=== PATIENT | male | born 1955 | race Caucasian/White ===

== ENCOUNTER 2023-12-31 16:47 | Emergency (ER) | payer MEDICARE, SELFPAY ==
[2023-12-31 17:04] VITALS: BP 167/94; PULSE 72; RESP 18; TEMP 36.5; O2SAT 94; BMI 36.2
--- NOTE | 2023-12-31 17:45 | XR_ITS ---
The [address] [address] Patient Name: MELISSA CHACON MRN: [id number] date: 1955 Sex: M Assigned Patient Location: ER Current Patient Location: ER Accession/Order Number: [id number] Exam Date: 12/31/2023 17:48 Report Date: 12/31/2023 18:46 At the request of: RADHA PEREZ Procedure: XR chest 2V EXAM: XR chest 2V HISTORY: orthopnea, SOB COMPARISON: None. TECHNIQUE: Chest X-ray AP, 1 view FINDINGS: Support devices: None. Lungs/pleura: No pneumothorax. Bilateral lower lobes hazy opacities, representing atelectasis and/or consolidation. Heart and mediastinum: Normal contours. Bones: No acute abnormality identified. XR/XR chest 2V Impression: Bilateral lower lobes hazy opacities, representing atelectasis and/or consolidation. Electronically authenticated by: KRYSTIAN BASS Date: 12/31/2023 18:46
--- NOTE | 2023-12-31 17:57 | ED_ITS ---
HPI - General Adult General Chief complaint: Shortness of Breath/Dyspnea Stated complaint: Shortness of Breath Time Seen by Provider: 12/31/23 17:53 Source: patient and family Mode of arrival: walk-in Limitations: no limitations History of Present Illness HPI narrative: Patient is a 5-year-old male who is presenting to the Emergency Room today with chief complaint Of mild shortness of breath, cough, congestion for the past 2 weeks. Patient believes symptoms have worsened in the past 2 days. Patient saw his PCP last Wednesday, Dr. Novak, had swabs in the office that were negative. is at bedside. Patient has a history of shortness of breath and emphysema. Patient does not wear oxygen at home. He does take she was sedated, also has a albuterol inhaler. Patient was noted to have 5 pound weight gain in triage note, patient states that is not significant and not watery, hematologic gain a few pounds in the last couple weeks. Patient has no fluid swelling to his arms, legs, or his abdomen. Patient has been taking some uuff-qta-hgxdooj medication to help with cough. No chest pain or tightness. No other acute complaints. . All systems are negative except as noted/marked. All systems reviewed and otherwise negative. . Nurses note and vital signs reviewed and patient is not hypoxic. General: The patient appears well and in no apparent distress. Patient is resting comfortably on cart. Patient is not toxic, lethargic, or listless Skin: Warm, dry, no pallor noted. There is no rash noted. No petechiae, purpura. Head: Normocephalic, atraumatic Eye: Normal conjunctiva, no drainage, EOMI. PERRL Ears, Nose, Mouth, and Throat: oral mucosa is moist. Nares patent. Mouth without vesicles. Cardiovascular: Regular Rate and Rhythm, no murmur, gallop, rub Respiratory: Patient is in no distress, no accessory muscle use, lungs are Faint crackles to bilateral bases with faint wheezing as well. Back: non-tender, no CVA tenderness bilaterally to percussion. No CT LS midline pain GI: soft, Obese,no tenderness to palpation, no masses appreciated. No rebound, guarding, or rigidity noted. No flank pain bilateral, No distention Musculoskeletal: Patient has full range of motion of all of the extremities, no motor, sensory, or focal neurological deficits. No edema to lower extremities. Neurological: A&O x3, normal speech Psychiatric: Cooperative Related Data Home Medications Medication Instructions Recorded Confirmed Soliqua 100/33 12/31/23 atorvastatin 40 mg tablet mg 12/31/23 empagliflozin 25 mg tablet 25 mg PO DAILY 12/31/23 12/31/23 (Jardiance) ergocalciferol (vitamin D2) 1,250 12/31/23 mcg (50,000 unit) capsule (Vitamin D2) fluticasone fur. 100 mcg-umeclid inhalation 12/31/23 62.5 mcg-vilant 25 mcg inhalat.powder (Trelegy Ellipta) lisinopril 20 mg tablet 20 mg PO DAILY 12/31/23 12/31/23 metformin 1,000 mg tablet mg 12/31/23 propranolol 20 mg tablet 10 mg PO DAILY 12/31/23 12/31/23 tamsulosin 0.4 mg capsule mg PO 12/31/23 Previous Rx's Medication Instructions Recorded benzonatate 100 mg capsule 200 mg (2 x 100 mg) PO TID PRN 12/31/23 cough #20 caps doxycycline hyclate 100 mg tablet 100 mg PO BID 10 days #20 tabs 12/31/23 Allergies Allergy/AdvReac Type Severity Reaction Status Date / Time No Known Drug Allergies Allergy Verified 12/31/23 17:04 [facility] Social History Smoking status: Former smoker Exam Constitutional Vital Signs, click to edit/add: Last Vital Signs Temp 97.7 F 12/31/23 17:04 Pulse 71 12/31/23 18:25 Resp 18 12/31/23 18:25 BP 167/94 H 12/31/23 17:04 Pulse Ox 92 L 12/31/23 18:25 O2 Del Method Room Air 12/31/23 17:04 Course Vital Signs Vital signs: Vital Signs Temperature 97.7 F 12/31/23 17:04 Pulse Rate 72 12/31/23 17:04 Respiratory Rate 18 12/31/23 17:04 Blood Pressure 167/94 H 12/31/23 17:04 Pulse Oximetry 94 L 12/31/23 17:04 Oxygen Delivery Method Room Air 12/31/23 17:04 Temperature 97.7 F 12/31/23 17:04 Pulse Rate 71 12/31/23 18:25 Respiratory Rate 18 12/31/23 18:25 Blood Pressure 167/94 H 12/31/23 17:04 Pulse Oximetry 92 L 12/31/23 18:25 Oxygen Delivery Method Room Air 12/31/23 17:04 Medical Decision Making MDM Narrative Medical decision making narrative: Chest x-ray shows questionable atelectasis versus consolidation pneumonia. Patient has no elevated white blood cell, troponin and B natruretic peptide are negative. Patient has no fever, does have mild cough, does have mild sinus congestion with sinus drainage noted to the posterior pharynx. Patient has been sick for 2 weeks. Patient is a diabetic and chronic obstructive pulmonary disease exacerbation and history. Patient prophylactically placed on doxycycline, given Tessalon Perles to help with cough suppression. Patient will use his albuterol inhaler every 4 hours later is awake, a lot of aepx-mjm-iuqobqh medications were educated to use at bedside and on discharge paperwork for patient to take. No questions at discharge. Lab Data Labs: Lab Results 12/31/23 Range/Units 18:05 WBC 6.2 (4.0-11.0) 10^3/uL RBC 4.57 L (4.70-6.10) 10^6/uL Hgb 12.7 L (14.0-18.0) g/dL Hct 40.9 L (42.0-54.0) % MCV 89.5 (80.0-94.0) fL MCH 27.8 (25.9-34.0) pg MCHC 31.1 (29.9-35.2) g/dL RDW 18.1 H (11.0-15.0) % Plt Count 270 (150-450) 10^3/uL MPV 9.2 L (9.5-13.5) fL Neut % (Auto) 64.1 (43.0-75.0) % Lymph % (Auto) 17.7 L (20.5-60.0) % Rich % (Auto) 11.0 (1.7-12.0) % Eos % (Auto) 3.9 (0.9-7.0) % Baso % (Auto) 1.4 (0.2-2.0) % Neut # (Auto) 4.0 (1.4-6.5) 10^3/uL Lymph # (Auto) 1.1 L (1.2-3.8) 10^3/uL Rich # (Auto) 0.7 (0.3-0.8) 10^3/uL Eos # (Auto) 0.2 (0.0-0.7) 10^3/uL Baso # (Auto) 0.1 (0.0-0.1) 10^3/uL Abs Immat Gran (auto) 0.12 H (0.00-0.03) 10^3/uL Imm/Tot Granulo (auto) 1.9 H (0.0-0.5) % Sodium 140 (136-145) mmol/L Potassium 3.9 (3.5-5.1) mmol/L Chloride 103 (98-107) mmol/L Carbon Dioxide 33.7 H (21.0-32.0) mmol/L Anion Gap 7.2 BUN 13.0 (7.0-18.0) mg/dL Creatinine 1.11 (0.70-1.30) mg/dL Est GFR ( Amer) >60 (>=60) Est GFR (Non-Af Amer) >60 (>=60) BUN/Creatinine Ratio 11.7 Glucose 93 (74-106) mg/dL Calcium 9.2 (8.5-10.1) mg/dL Troponin I High Sens <4.0 L (4.0-76.1) pg/mL NT-Pro-B Natriuret Pep 20.0 (<=900.0) pg/mL ECG Data Attestation: I personally reviewed and interpreted this ECG as follows: (EKG interpretation. Normal sinus rhythm at 71 beats a minute. Left axis deviation QTc of 405.) Discharge Plan Discharge Chief Complaint: Shortness of Breath/Dyspnea Clinical Impression: Sinusitis, COPD exacerbation Patient Disposition: Home, Self-Care Time of Disposition Decision: 19:20 Condition: Good Mode of Transportation: Private Vehicle Prescriptions / Home Meds: New benzonatate 100 mg capsule 200 mg PO TID PRN (Reason: cough) Qty: 20 0RF doxycycline hyclate 100 mg tablet 100 mg PO BID 10 Days Qty: 20 0RF No Action atorvastatin 40 mg tablet tamsulosin 0.4 mg capsule PO metformin 1,000 mg tablet ergocalciferol (vitamin D2) [Vitamin D2] 1,250 mcg (50,000 unit) capsule Trelegy Ellipta 100-62.5-25 mcg blister with device INHALATION propranolol 20 mg tablet 10 mg PO DAILY lisinopril 20 mg tablet 20 mg PO DAILY Jardiance 25 mg tablet 25 mg PO DAILY Soliqua 100/33 Instructions: Sinusitis (ED), COPD (Chronic Obstructive Pulmonary Disease) (ED) Additional Instructions: Start using DayQuil, NyQuil, Flonase daily for next 5-7 days Add Mucinex DM if needed. Take daily vitamin C, vitamin D3, and zinc Increase fluids. Alternate Tylenol and Motrin every 4 hours as needed for body aches, muscle pain, joint pain or chest wall pain Follow-up with her PCP is no significant improvement in the next 3-4 days Referrals: PREETHI NOVAK [Primary Care Provider] - 1 week Discharge Date/Time: 12/31/23 19:30 Stand Alone Forms: Portal Instructions
[2023-12-31 18:17] LABS: Basophils Absolute Auto 0.1 10^3/uL (0.0-0.1); Basophils Percent Auto 1.4 % (0.2-2.0); Eosinophils Absolute Auto 0.2 10^3/uL (0.0-0.7); Eosinophils Percent Auto 3.9 % (0.9-7.0); Hematocrit 40.9 % (42.0-54.0); Hemoglobin 12.7 g/dL (14.0-18.0); Immature Granulocytes Abs Auto 0.12 10^3/uL (0.00-0.03); Immature Granulocytes Pct Auto 1.9 % (0.0-0.5); Lymphocytes Absolute Auto 1.1 10^3/uL (1.2-3.8); Lymphocytes Percent Auto 17.7 % (20.5-60.0); Mean Corpuscular HGB Conc 31.1 g/dL (29.9-35.2); Mean Corpuscular Hemoglobin 27.8 pg (25.9-34.0); Mean Corpuscular Volume 89.5 fL (80.0-94.0); Mean Platelet Volume 9.2 fL (9.5-13.5); Monocytes Absolute Auto 0.7 10^3/uL (0.3-0.8); Neutrophils Percent Auto 64.1 % (43.0-75.0); Platelet Count 270 10^3/uL (150-450); Red Blood Count 4.57 10^6/uL (4.70-6.10); Red Cell Distribution Width 18.1 % (11.0-15.0); White Blood Count 6.2 10^3/uL (4.0-11.0)
[2023-12-31 18:25] VITALS: PULSE 71; RESP 18; O2SAT 92
[2023-12-31] MEDS: ALBUTEROL SULFATE 2.5 MG/3 ML VIAL NEB IH (18:25)
[2023-12-31 18:43] LABS: Anion Gap 7.2; BUN Creatinine Ratio 11.7; Calcium 9.2 mg/dL (8.5-10.1); Carbon Dioxide 33.7 mmol/L (21.0-32.0); Chloride 103 mmol/L (98-107); Estimated GFR (African America >60 (>=60); Estimated GFR (Non-African Ame >60 (>=60); Glucose 93 mg/dL (74-106); Potassium 3.9 mmol/L (3.5-5.1); Sodium 140 mmol/L (136-145); Troponin I High Sensitivity <4.0 pg/mL (4.0-76.1)
--- NOTE | 2023-12-31 19:06 | ECG_ITS ---
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
[2023-12-31 19:28] VITALS: BP 135/76; PULSE 71; RESP 20; TEMP 36.9; O2SAT 93
== END 2023-12-31 19:30 | disposition home or self-care (01) ==
PROVIDERS: Emergency Provider Emergency Medicine; PCP Family Medicine
DX: J44.1 Chronic obstructive pulmonary disease with (acute) exacerbation (principal); J32.9 Chronic sinusitis, unspecified; E11.9 Type 2 diabetes mellitus without complications; Z79.899 Other long term (current) drug therapy; Z79.84 Long term (current) use of oral hypoglycemic drugs; Z87.891 Personal history of nicotine dependence
CPT/HCPCS: 36415; 71046; 80048; 83880; 84484; 85025; 93005; 94640; 99285

== ENCOUNTER 2025-05-17 08:36 | Outpatient (OUT) | payer MEDICARE, SELFPAY ==
--- OUTSIDE RECORDS SUMMARY | 2025-05-17 08:40 | XMS_ITS | Encounter Summary ---
Author Organization [facility] Address [address] [place] [address] Care Team Providers Care Business Process Coordinator Name Role Phone Anamaria Novak MD Unavailable Anamaria Novak MD Primary Care Provider [phone] Anamaria Novak MD Unavailable Encounter Details Date Type Department Care Team (Late st Contact Info) Description 06/25/2023 Abstract [facility] [address] [facility] [address] [place] [phone] Cynthia Sen, PSYCHIATRY TEACHER [address] [facility] [address] [place] [address] Social History Tobacco Use Types Packs/Day Years Used Date Smoking Tobacco: Former Cigarettes Q uit: 2004 Smokeless Tobacco: Never Tobacco Cessation:Counseling Given: Not Answered Comments:Last smoked 10-15 years ago Alcohol Use Standard Drinks/Week Comments Yes 0 (1 standard drink = 0.6 oz pur e alcohol) caffeine: chocolate, coffee AUDIT-C Answer Date Recorded Q1: How often do you have a drink containing alc ohol? Monthly or less 05/14/2023 Q2: How many drinks containi ng alcohol do you have on a typical day when you are drinking? 1 or 2 05/14/2023 Q3: How often do you have si x or more drinks on one occasion? Never 05/14/2023 PHQ-2 Answer Date Recorded Patient Health Questionnaire-2 Score 0 05/14/2023 Sex and Gender Information Value Date Recorded Sex Assigned at Not on file Legal Sex Male 7:21 PM EDT Gender Identity Not on file Sexual Orientation Not on file documented as of this encounter Plan of Treatment Upcoming Encounters Date Type Department Care Team (Late st Contact Info) Description 05/17/2025 2:30 PM EDT Office Visit [facility] [address] [place] [address] Anamaria Novak MD [address] [place] [address] 05/22/2025 3:00 PM EDT Office Visit [facility] [address] [place] [phone] Catherine Gil MD [address] [place], [place] [id number] documented as of this encounter Visit Diagnoses Not on filedocumented in this encounter Additional Health Concerns Assessment Noted Time PHQ-9 Depression Total Score: 0 05/14/20 10:00 AM EDT documented as of this encounter Care Teams Business Process Coordinator Relationship Specialty Start Date End Date Anamaria Novak MD [address] [place] [address] PCP - [facility] 11/01/22 08/31/23 Anamaria Novak MD [address] [place] [address] PCP - General Family Medicine 05/11/23 Anamaria Novak MD [address] [place] [address] PCP - [facility] 11/01/23 12/01/73 documented as of this encounter
--- OUTSIDE RECORDS SUMMARY | 2025-05-17 08:40 | XMS_ITS | Encounter Summary ---
Author Organization [facility] Address [address] [place] [address] Care Team Providers Care Press Tool Maker Name Role Phone Anamaria Novak MD Primary Care Provider [phone] Anamaria Novak MD Unavailable Encounter Details Date Type Department Care Team (Late st Contact Info) Description 05/18/2024 Abstract [facility] [address] [facility] [address] [place] [address] Anamaria Novak MD [address] [facility] [address] [place] [address] Social History Tobacco Use Types Packs/Day Years Used Date Smoking Tobacco: Former Cigarettes Q uit: 2003 Smokeless Tobacco: Never Comments:Last smoked 10-15 y ears ago Alcohol Use Standard Drinks/Week Comments Yes [...] Date Recorded Patient Health Questionnaire-2 Score 0 05/15/2024 Sex and Gender Information Value Date Recorded Sex Assigned at Not on file Legal Sex Male 7:21 PM EDT Gender Identity Not on file Sexual Orientation Not on file documented as of this encounter Plan of Treatment Upcoming Encounters Date Type Department Care Team (Late st Contact Info) Description 05/17/2025 2:30 PM EDT Office Visit [facility] [address] [facility] [address] [place] [address] Anamaria Novak MD [address] [facility] [address] [place] [address] 05/22/2025 3:00 PM EDT Office Visit [facility] [address] [place] [address] Catherine Gil MD [address] [place] [address] documented as of this encounter Visit Diagnoses Not on filedocumented in this encounter Additional Health Concerns Assessment Noted Time PHQ-9 Depression Total Score: 0 05/14/20 23 10:00 AM EDT documented as of this encounter Care Teams Press Tool Maker Relationship Specialty Start Date End Date Anamaria Novak MD [address] [facility] [address] [place] [address] PCP - General Family Medicine 05/11/23 Anamaria Novak MD [address] [facility] [address] [place] [address] PCP - [facility] 11/01/23 12/01/73 documented as of this encounter
--- OUTSIDE RECORDS SUMMARY | 2025-05-17 08:40 | XMS_ITS | Encounter Summary ---
Author Organization [facility] Address [address] [place] [address] Care Team Providers Care Dragline Operator Helper Name Role Phone Anamaria Novak MD Primary Care Provider [phone] Anamaria Novak MD Unavailable Encounter Details Date Type Department Care Team (Late st Contact Info) Description 01/13/2024 Orders Only [facility] [address] [place] [address] Unallocated, [facility] Provider, [address] [place], [place] [id number] Social History Tobacco Use Types Packs/Day Years [...] FM [address] [place] [address] Anamaria Novak MD [address] [place] [address] 05/22/2025 3:00 PM EDT Office Visit [facility] [address] [place] [address] Catherine Gil MD [address] [place] [address] documented as of this encounter Procedures Procedure Name Priority Date/Time Associated Diagnosis Comments XR CHEST 2 VIEWS Routine 12/31/2023 11:3 6 AM EST ELECTROCARDIOGRAM REPORT Routine 024 11:35 AM EST SCANNED LABS Routine 12/31/2023 11:35 AM EST documented in this encounter Results * XR chest 2 views (12/31/2023 11:36 AM EST) Anatomical Region Laterality Modality Chest Radiographic Marleen ging us [facility] Provider Unallocated IMG XR PROCEDURES F inal Result * Electrocardiogram Report (12/31/2023 11:35 AM EST) us [facility] Provider Unallocated MD IN CLINIC/BEDSIDE O RDERABLES Final Result * SCANNED LABS (12/31/2023 11:35 AM EST) us [facility] Provider Unallocated MD LAB CHG PERFORMABLE S Final Result documented in this encounter Visit Diagnoses Not on filedocumented in this encounter Additional Health Concerns Assessment Noted Time PHQ-9 Depression Total Score: 0 05/14/20 23 10:00 AM EDT documented as of this encounter Care Teams Dragline Operator Helper Relationship Specialty Start Date End Date Anamaria Novak MD [address] [facility] [address] [place] [address] PCP - General Family Medicine 05/11/23 Anamaria Novak MD [address] [facility] [address] [place] [address] PCP - [facility] 11/01/23 12/01/73 documented as of this encounter
--- OUTSIDE RECORDS SUMMARY | 2025-05-17 08:40 | XMS_ITS | Encounter Summary ---
Author Organization [facility] Address [address] [place] [address] Care Team Providers Care Professional Builder Name Role Phone Anamaria Novak MD Primary Care Provider [phone] Anamaria Novak MD Unavailable Encounter Details Date Type Department Care Team (Late st Contact Info) Description 12/28/2023 Orders Only [facility] [address] [place] [address] Unallocated, [facility] Provider, [address] [place], [place] [id number] Social History Tobacco Use Types Packs/Day Years [...] [address] [place] [address] Anamaria Novak MD [address] [place] [address] 05/22/2025 3:00 PM EDT Office Visit [facility] [address] [place] [address] Catherine Gil MD [address] [place] [address] documented as of this encounter Procedures Procedure Name Priority Date/Time Associated Diagnosis Comments SCANNED LABS Routine 12/28/2023 4:09 PM EST documented in this encounter Results * SCANNED LABS (12/28/2023 4:09 PM EST) us [facility] Provider Unallocated LAB CHG PERFORMABLE S Final Result documented in this encounter Visit Diagnoses Not on filedocumented in this encounter Additional Health Concerns Assessment Noted Time PHQ-9 Depression Total Score: 0 05/14/20 23 10:00 AM EDT documented as of this encounter Care Teams Professional Builder Relationship Specialty Start Date End Date Anamaria Novak MD [address] [place] [address] PCP - General Family Medicine 05/11/23 Anamaria Novak MD [address] [place] [address] PCP - [facility] 11/01/23 12/01/73 documented as of this encounter
--- OUTSIDE RECORDS SUMMARY | 2025-05-17 08:40 | XMS_ITS | Encounter Summary ---
Author Organization [facility] Address [address] [place] [address] Care Team Providers Care Automobile Drivers Name Role Phone Anamaria Novak MD Unavailable Anamaria Novak MD Primary Care Provider [phone] Anamaria Novak MD Unavailable Encounter Details Date Type Department Care Team (Late st Contact Info) Description 05/13/2023 Abstract [facility] [address] [place] [address] Chrissy Valdivia LPN [address] [place], [place] [id number] Social History Tobacco Use Types Packs/Day Years Used Date Smoking Tobacco: Never Assessed AUDIT-C Answer Date Recorded Q1: How often [...] on file documented as of this encounter Functional Status * Audit-C Score Answer Date of Assessment Author 1 05/14/2023 10:35 AM Lindsay Rosa LPN * Question Answer Date of Assessment Author Q1: How often do you have a drink containing alcohol? Monthly or less 05/14/2023 10:35 AM Chrissy Rosa L PN Q2: How many drinks containing alcohol do you have on a typical day when you are drinking? 1 or 2 05/14/2023 10:35 AM Chrissy Rosa L PN Q3: How often do you have six or more drinks on one occasion? Never 05/14/2023 10:35 AM Chrissy Rosa L PN * Over the past 2 weeks, how often have you been bothered by any of the following problems? Question Answer Date of Assessment Author Little interest or pleasure in doing things Not at all 05/14/2023 10:00 AM Chrissy Rosa L PN Feeling down, depressed, or hopeless Not at all 05/14/2023 10:00 AM Chrissy Rosa L PN Patient Health Questionnaire -2 Score 0 05/14/2023 10:00 AM Chrissy Rosa L PN * Question Answer Date of Assessment Author Trouble falling or staying asleep, or sleeping too much Not at all 05/14/2023 10:00 AM Rachael Rosa LPN Feeling tired or having orlando le energy Not at all 05/14/2023 10:00 AM Chrissy Rosa L PN Poor appetite or overeating Not at all 05/14/2023 10 :00 AM Chrissy Rosa LPN Feeling bad about yourself - or that you are a failure or have let yourself or your family down Not at all 05/14/2023 10:00 AM Chrissy Rosa L PN Trouble concentrating on things, such as reading the newspaper or watching television Not at all 05/14/2023 10:00 AM Chrissy Rosa L PN Moving or speaking so slowly that other people could have noticed? Or the opposite - being so fidgety or restless that you have been moving around a lot more than usual. Not at all 05/14/2023 10:00 AM EDT Chrissy Valdivia LPN Thoughts that you would be better off or hurting yourself in some way Not at all 05/14/2023 10:00 AM EDT Chrissy Valdivia LPN Patient Health Questionnaire -9 Score 0 05/14/2023 10:00 AM EDT Chrissy Valdivia L PN documented as of this encounter Plan of Treatment Upcoming Encounters Date Type Department Care Team (Late st Contact Info) Description 05/17/2025 2:30 PM EDT Office Visit [facility] [address] [place] [address] Anamaria Novak MD [address] [place] [address] 05/22/2025 3:00 PM EDT Office Visit [facility] [address] [place] [address] Catherine Gil MD [address] [place], [place] [id number] documented as of this encounter Visit Diagnoses Not on filedocumented in this encounter Care Teams Automobile Drivers Relationship Specialty Start Date End Date Anamaria Novak MD [address] [place] [address] PCP - [facility] 11/01/22 08/31/23 Anamaria Novak MD [address] [place] [address] PCP - General Family Medicine 05/11/23 Anamaria Novak MD [address] [place] [address] PCP - [facility] 11/01/23 12/01/73 documented as of this encounter
--- OUTSIDE RECORDS SUMMARY | 2025-05-17 08:40 | XMS_ITS | Clinical Summary ---
Author Organization [facility] Healthcare Address [address] [place] [address] Care Team Providers Care Ladle Watcher Name Role Phone Anamaria Novak MD Primary Care Provider [phone] Anamaria Novak MD Unavailable Allergies No known active allergies Medications aspirin 81 MG chewable tablet Chew 1 tablet 1 (one) time each day at the same time. Active glucose 4 g chewable tablet Take 3 - 4 tablets orally as needed daily for hypoglycemia 022 Active [place] 3 340 MG capsule delayed-release Take 1 capsule by mouth every 12 (twelve) hours. Active Glucose Blood (Blood Glucose Test Strips 333) stripIndications: Type 2 diabetes mellitus with hyperglycemia, unspecified whether intermediate insulin use (HCC) 1 strip by In Vitro route Daily 100 strip 3 024 Active glucose blood test stripIndications: Type 2 diabetes mellitus with hyperglycemia, unspecified whether medical terminologist insulin use (HCC) 1 each by Other route if needed (As instructed) Use as instructed 100 each 1 024 Active Blood Glucose Monitoring Suppl (OptumRx Blood Glucose Meter) w/Device kitIndications:Ty pe 2 diabetes mellitus without complication, with long-term current use of insulin (HCC) 1 each Daily 1 kit 3 024 Active Continuous Glucose Bung Sewer (FreeStyle Jeevan 2 [place]) deviceIndications :Type 2 diabetes mellitus with hyperglycemia, unspecified whether medical terminologist insulin use (HCC) 1 Device Daily 1 each 024 Active albuterol HFA 90 mcg/act inhalerIndication s:Chronic obstructive pulmonary disease, unspecified COPD type ([facility]) INHALE 2 INHALATIONS BY MOUTH EVERY 6 HOURS IF NEEDED FOR SHORTNESS OF BREATH OR WHEEZING 34 g 2 024 Active metFORMIN (Glucophage) 1000 MG tabletIndications :Type 2 diabetes mellitus without complication, without long-term current use of insulin ([facility]) TAKE 1 TABLET BY MOUTH TWICE DAILY WITH MEALS 200 tablet 2 024 Active Soliqua 100-33 UNT-MCG/ML penIndications:Ty pe 2 diabetes mellitus with hyperglycemia, unspecified whether intermediate insulin use ([facility]) INJECT SUBCUTANEOUSLY 60 UNITS IN THE MORNING BEFORE A MEAL 60 mL 2 024 Active propranolol (Inderal) 20 MG tabletIndications :Benign essential hypertension TAKE 1 TABLET BY MOUTH DAILY 100 tablet 2 024 Active lisinopril 20 MG tabletIndications :Benign essential hypertension TAKE 1 TABLET BY MOUTH ONCE DAILY 100 tablet 2 024 Active Prednisolon-Moxif lox-Bromfenac 1-0.5-0.075 % solutionIndicatio ns:Cortical age-related cataract of both eyes Administer 1 drop into affected eye(s) in the morning and 1 drop at noon and 1 drop in the evening and 1 drop before bedtime. 10 mL 1 025 Active tamsulosin (Flomax) 0.4 MG 24 hr capsuleIndication s:Benign prostatic hyperplasia with urinary frequency TAKE 1 CAPSULE BY MOUTH ONCE DAILY 100 capsule 2 025 Active Trelegy Ellipta 100-62.5-25 MCG/ACT aerosol powderIndications :Type 2 diabetes mellitus without complication, with long-term current use of insulin ([facility]) USE 1 INHALATION BY MOUTH ONCE DAILY AT THE SAME TIME EACH DAY 180 each 3 025 Active atorvastatin (Lipitor) 40 MG tabletIndications :Hyperlipidemia, unspecified hyperlipidemia type Take 1 tablet (40 mg) by mouth Daily 100 tablet 1 025 Active Continuous Glucose Sensor (FreeStyle Jeevan 3 Plus Sensor) miscIndications:T ype 2 diabetes mellitus without complication, with long-term current use of insulin ([facility]) 1 each every 14 (fourteen) days 6 each 3 025 Active ergocalciferol (Vitamin D2) 1.25 MG (20195 [place]) capsuleIndication s:Stage 1 chronic kidney disease due to type 2 diabetes mellitus (HCC) TAKE 1 CAPSULE BY MOUTH WEEKLY 12 capsule 3 025 Active Jardiance 25 MGIndications:Typ e 2 diabetes mellitus with hyperglycemia, unspecified whether intermediate insulin use (HCC) TAKE 1 TABLET BY MOUTH ONCE DAILY 100 tablet 2 025 Active Jardiance 25 MGIndications:Typ e 2 diabetes mellitus with hyperglycemia, unspecified whether medical terminologist insulin use (HCC) TAKE 1 TABLET BY MOUTH ONCE DAILY 100 tablet 2 024 2024 Discontinued Active Problems Problem Noted Date Diagnosed Date Microalbuminuria due to type 2 diabetes mellitus 03/22/2025 Assessment & Plan (03/22/2025 1:31 PM EDT): On Jardiance Medicare annual wellness visit, subsequent 05/15 Assessment & Plan (05/15/2024 1:37 PM EDT): Colonoscopy every 10 years or Cologuard every 3 years ages 50-75 Flu Vaccine yearly Pneumovax and Prevnar Mammo yearly for women and PSA yearly for men Labs/Screening yearly to rule out Diabetes, Chronic Kidney disease and liver disease Hepatitis Screen forat risk populations Shingles vaccine after 65 if indicated Tetanus Vaccine every 10 years Lipids yearly under the age of 75 If Smoking history: one time CT scan of chest and Ultrasound of Aorta to screen for Anuerysm Body mass index (BMI) 36.0-36.9, adult Assessment & Plan (04/18/2024 2:11 PM EDT): Weight loss and exercises encouraged Acute non-recurrent maxillary sinusitis 04/18/20 24 Foreign body of hand, left 12/24/2023 Injury of hand, left 12/24/2023 Type 2 diabetes mellitus with hyperglycemia 12/03 Assessment & Plan (03/22/2025 1:31 PM EDT): No Tobacco use Follow ADA 1800 diet low carbohydrate Continue Med Compliance Goal LDL less than 100 Goal BP 130/80 Goal HgbA1c < 7.0% Monitor Feet, monitor for infection Needs Exercise Yearly eye exams Prior to your visit today we reviewed your chart and outlined testing and treatment needed for your care. Reviewed poissble complications of diabetes including, loss of vision, kidney failure and increased risk of heart attacks and stroke. We made recommendations on how to control your blood sugars, and minimize your risk of these complications. We discussed your current barriers to a healthy living and importance of healthy diet and exercise. Assessment & Plan (05/15/2024 1:36 PM EDT): No Tobacco use Follow ADA 1800 diet low carbohydrate Continue Med Compliance Goal LDL less than 100 Goal BP 130/80 Goal HgbA1c < 7.0% Monitor Feet, monitor for infection Needs Exercise Yearly eye exams Prior to your visit today we reviewed your chart and outlined testing and treatment needed for your care. Reviewed poissble complications of diabetes including, loss of vision, kidney failure and increased risk of heart attacks and stroke. We made recommendations on how to control your blood sugars, and minimize your risk of these complications. We discussed your current barriers to a healthy living and importance of healthy diet and exercise. Assessment & Plan (01/06/2024 2:47 PM EST): Watch for sugar elevation Asymmetrical sensorineural hearing loss 05/07/20 23 Sensorineural hearing loss, bilateral 05/07/2023 Benign essential hypertension 05/07/2023 Assessment & Plan (03/22/2025 1:31 PM EDT): Our specific goals, for your hypertension, is to keep your blood pressure less than 140/90, and the importance of weight control. We made recommendations on how to control your blood pressure, and minimize your risk of these copmplications. We also discussed your current barriers to a healthy living and importance of healthy diet and exercise. Prior to your visit today we have reviewed your chart and formed a plan to assist with providing you the best possible care. We reviewed the possible complications of hypertension including, stroke, heart failure and kidney impairment. In addition, we discussed your medications, the importance of taking them as prescribed. DASH diet handouts Assessment & Plan (05/15/2024 1:36 PM EDT): Our specific goals, for your hypertension, is to keep your blood pressure less than 140/90, and the importance of weight control. We made recommendations on how to control your blood pressure, and minimize your risk of these copmplications. We also discussed your current barriers to a healthy living and importance of healthy diet and exercise. Prior to your visit today we have reviewed your chart and formed a plan to assist with providing you the best possible care. We reviewed the possible complications of hypertension including, stroke, heart failure and kidney impairment. In addition, we discussed your medications, the importance of taking them as prescribed. DASH diet handouts Assessment & Plan (04/18/2024 2:10 PM EDT): Our specific goals, for your hypertension, is to keep your blood pressure less than 140/90, and the importance of weight control. We made recommendations on how to control your blood pressure, and minimize your risk of these copmplications. We also discussed your current barriers to a healthy living and importance of healthy diet and exercise. Prior to your visit today we have reviewed your chart and formed a plan to assist with providing you the best possible care. We reviewed the possible complications of hypertension including, stroke, heart failure and kidney impairment. In addition, we discussed your medications, the importance of taking them as prescribed. DASH diet handouts Benign prostatic hyperplasia with lower urinary tract symptoms 05/07/2023 Bilateral tinnitus 05/07/2023 Chronic obstructive pulmonary disease, unspecifi ed 05/07/2023 Assessment & Plan (04/18/2024 2:14 PM EDT): This is a chronic medical condition that is stable since last assessment. No changes in treatment are suggested at this time. Continue Current meds. Chronic obstructive pulmonar y disease with (acute) lower respiratory infection 05/07/2023 Assessment & Plan (01/06/2024 2:48 PM EST): I discussed with patient that while on prednisone, do not take any NSAIDs like Ibuprofen, Naprosyn, Alleve or motrin. Watch for any side effects like abdominal pain and nausea. Take the prednisone with food or milk. Prednisone may increase appetite. While on prednisone, watch for any sugar elevations. Type 2 diabetes mellitus wit hout complication, with long-term current use of insulin 05/07/2023 Assessment & Plan (04/18/2024 2:09 PM EDT): No Tobacco use Follow ADA 1800 diet low carbohydrate Continue Med Compliance Goal LDL less than 100 Goal BP 130/80 Goal HgbA1c < 7.0% Monitor Feet, monitor for infection Needs Exercise Yearly eye exams Prior to your visit today we reviewed your chart and outlined testing and treatment needed for your care. Reviewed poissble complications of diabetes including, loss of vision, kidney failure and increased risk of heart attacks and stroke. We made recommendations on how to control your blood sugars, and minimize your risk of these complications. We discussed your current barriers to a healthy living and importance of healthy diet and exercise. Hesitancy of micturition 05/07/2023 Hypercholesterolemia 05/07/2023 Assessment & Plan (05/15/2024 1:36 PM EDT): This is a chronic medical condition that is stable since last assessment. No changes in treatment are suggested at this time. Continue Current meds. Hyperlipidemia 05/07/2023 Impotence of organic origin 05/07/2023 Meniere disease 05/07/2023 Morbid (severe) obesity due to excess calories 0 05/07/2023 Assessment & Plan (04/18/2024 2:11 PM EDT): Weight loss will improve diabetes and reduce cardiovascular risk PVC's (premature ventricular contractions) 05/07 Allergic rhinitis 05/07/2023 Rhinitis 05/07/2023 Chronic kidney disease, stage 1 05/07/2023 Stage 1 chronic kidney disea se due to type 2 diabetes mellitus 04/17/2023 Encounters Date Type Department Care Team Description 05/17/2025 Telephone [facility] [address] [facility] [address] [place] [address] Anamaria Novak MD 05/07/2025 Refill [facility] [address] [place] [address] [place] [address] Thelma Lott, [place] Type 2 diabetes mellitus with hyperglycemia, unspecified whether medical terminologist insulin use (HCC) 03/29/2025 Refill [facility] [address] [facility] [address] [place] [address] Anamaria Novak MD Stage 1 chronic kidney disease due to type 2 diabetes mellitus (HCC) 03/22/2025 1:00 PM EDT Office Visit [facility] [address] [facility] [address] [place] [address] Anamaria Novak MD Microalbuminuria due to type 2 diabetes mellitus (HCC) (Primary Dx); Type 2 diabetes mellitus with hyperglycemia, with long-term current use of insulin (HCC); Benign essential hypertension 03/22/2025 Telephone [facility] [address] [facility] [address] [place] [id number] Anamaria Novak MD Lab Orders 03/22/2025 Travel from Last 3 Months Immunizations Immunization Administration Dates Next Due Hep A / Hep B 02/01/2025,08/24/2024,07/14/2024 Influenza, High Dose Seasona l, Preservative Free 07/14/2024 Influenza, High-dose Seasona l, Quadrivalent, Preservative Free 07/19/2023,08/30/2020 Pneumococcal Conjugate PCV 20 07/14/2024 RSV, recombinant, protein vaughn bunit RSVpreF, adjuvant reconstitu, 120mcg/0.5mL, PF (Arexvy) 08/24/2024 Tdap 01/18/2017 Zoster, Recombinant 07/19/2023,05/20/2023 Family History Medical History Relation Name Comments Heart attack Brother Heart disease Mother Heart failure Mother Pneumonia Mother Relation Name Status Comments Brother Father Mother Social History Tobacco Use Types Packs/Day Years [...] Date Recorded Patient Health Questionnaire-2 Score 0 03/22/2025 Sex and Gender Information Value Date Recorded Sex Assigned at Not on file Legal Sex Male 7:21 PM EDT Gender Identity Not on file Sexual Orientation Not on file Last Filed Vital Signs Vital Sign Reading Time Taken Comments Blood Pressure 138/78 03/22/2025 1:01 PM EDT Pulse 72 03/22/2025 1:01 PM EDT Temperature 38.2 C (100.7 F) 12/24/2023 11:35 AM EST Respiratory Rate 20 12/24/2023 11:35 AM EST Oxygen Saturation 96% 03/22/2025 1:01 PM EDT Inhaled Oxygen Concentration - - Weight 112 kg (248 lb) 03/22/2025 1:01 PM EDT Height 177.8 cm (5' 10 ) 03/22/2025 1:01 PM EDT Body Mass Index 35.58 03/22/2025 1:01 PM EDT Plan of Treatment Upcoming Encounters Date Type Department Care Team (Late st Contact Info) Description 05/17/2025 2:30 PM EDT Office Visit [facility] [address] [facility] [address] [place] [phone] Anamaria Novak MD [address] [facility] [address] [place] [address] 05/22/2025 3:00 PM EDT Office Visit [facility] [address] [address] [place] [phone] Catherine Gil MD [address] [place] [address] Health Maintenance Due Date Last Done Comments CT Colonography 1955 Colonoscopy 1955 FIT 1955 FOBT 1955 Sigmoidoscopy 1955 Medicare Annual Wellness (AWV) 05/15/2025 05/15/2024 , 05/14/2023 Diabetes: Urine Protein Screening 05/26/2025 05/26/2024, 05/14/2023, 10/10/2021, Additional history exists Diabetes: Hemoglobin A1C 06/22/2025 025, 04/18/2024, 12/24/2023, Additional history exists Influenza Vaccine (#1) 2025 4, 07/19/2023, 08/30/2020 Diabetes: Retinopathy Screening 2026 2024, 2024, 2024, Additional history exists Colorectal Cancer Screening 05/08/2027 FIT-DNA 05/08/2027 05/08/2024, 04/02, 04/28/2021, Additional history exists Pneumococcal Vaccine: 65+ Years Completed 4 Procedures Procedure Name Priority Date/Time Associated Diagnosis Comments POCT GLYCATED HEMOGLOBIN, TOTAL Routine 03/22/2025 1:10 PM EDT Type 2 diabetes mellitus with hyperglycemia, with long-term current use of insulin (HCC) MICROALBUMIN / CREATININE URINE RATIO Routine 05/26/2024 8:57 AM EDT Medicare annual wellness visit, subsequent Type 2 diabetes mellitus with hyperglycemia, with long-term current use of insulin (HCC) LAB COLOGUARD COLON CANCER SCREEN Routine 05/08/2024 2:20 PM EDT Screening for malignant neoplasm of colon COLOR FUNDUS PHOTOGRAPHY - OU - BOTH EYES Routine 07/24/2020 12:00 PM EDT from Last 3 Months or Most Recently Relevant to Health Maintenance Results * (ABNORMAL) POCT Glycated hemoglobin, total (03/22/2025 1:10 PM EDT) Hemoglobin A1C 6.6 Blood 03/22/2025 1:10 PM EDT Anamaria Novak MD POINT OF CARE TEST ENTER/EDIT OR DERABLES Final Result * (ABNORMAL) Microalbumin / creatinine urine ratio (05/26/2024 8:57 AM EDT) CREATININE, RANDOM URINE 113 20 - 320 mg/dL [facility] ALBUMIN, URINE 6.1 See Note: mg/dL [facility] Comment: Reference Range: Reference Range Not established ALBUMIN/CREATININE RATIO, RANDOM URINE 54(H) <30 mg/g creat [facility] Comment: The ADA defines abnormalities in albumin excretion as follows: Albuminuria Category Result (mg/g creatinine) Normal to Mildly increased <30 Moderately increased 30-299 Severely increased > OR = 300 The ADA recommends that at least two of three specimens collected within a 3-6 month period be abnormal before considering a patient to be within a diagnostic category. Urine Urine specimen obtained by clean catch procedure / Unknown 05/26/2024 8:57 AM EDT 05/26/2024 3:10 PM EDT Narrative [facility] - 05/29/2024 1:40 PM EDT FASTING:YES FASTING: YES Resulting Agency Comment Performing Organization Information Site ID: QPT Name: [facility] Address: [address] [place] [id number] Director: Srikanth Cordon MD us Anamaria Novak MD LAB URINE ORDERABLES Final Resul t [facility] * Cologuard® colon cancer screening (05/08/2024 2:20 PM EDT) NONINV COLON CA DNA+OCC BLD SCRN STL-IMP Negative Negative 05/13/2024 11:34 PM EDT [facility] (CLIA #:[id number]) Comment: NEGATIVE TEST RESULT. A negative Cologuard result indicates a low likelihood that a colorectal cancer (CRC) or advanced adenoma (adenomatous polyps with more advanced pre-malignant features) is present. The chance that a person with a negative Cologuard test has a colorectal cancer is less than 1 in 1500 (negative predictive value >99.9%) or has an advanced adenoma is less than 5.3% (negative predictive value 94.7%). These data are based on a prospective cross-sectional study of 10,000 individuals at average risk for colorectal cancer who were screened with both Cologuard and colonoscopy. (Viktor Bae, N Engl J Med 2014;370(14):1957-2220) The normal value (reference range) for this assay is negative. COLOGUARD RE-SCREENING RECOMMENDATION: Periodic colorectal cancer screening is an important part of preventive healthcare for asymptomatic individuals at average risk for colorectal cancer. Following a negative Cologuard result, the [place] [employer] and U.S. Multi-Society Task Force screening guidelines recommend a Cologuard re-screening interval of 3 years. References: [place] [employer] Guideline for Colorectal Cancer Screening: https://www.cancer.org/cancer/ebluq-pclrun-rsbrpm/npzjtngdj-nrrjidant-ijddcdv/ac s-rec ommendations.html.; Giovani DK, Serjio CR, Camilla SwiftK, Colorectal Cancer Screening: Recommendations for Physicians and Patients from the U.S. Multi-Society Task Force on Colorectal Cancer Screening , Am J Gastroenterology 2017; 112:1776-9624. TEST DESCRIPTION: Composite algorithmic analysis of stool DNA-biomarkers with hemoglobin immunoassay. Quantitative values of individual biomarkers are not reportable and are not associated with individual biomarker result reference ranges. Cologuard is intended for colorectal cancer screening of adults of either sex, 45 years or older, who are at average-risk for colorectal cancer (CRC). Cologuard has been approved for use by the U.S. FDA. The performance of Cologuard was established in a cross sectional study of average-risk adults aged 50-84. Cologuard performance in patients ages 45 to 49 years was estimated by sub-group analysis of near-age groups. Colonoscopies performed for a positive result may find as the most clinically significant lesion: colorectal cancer [4.0%], advanced adenoma (including sessile serrated polyps greater than or equal to 1cm diameter) [20%] or non- advanced adenoma [31%]; or no colorectal neoplasia [45%]. These estimates are derived from a prospective cross-sectional screening study of 10,000 individuals at average risk for colorectal cancer who were screened with both Cologuard and colonoscopy. (Viktor Bae, N Engl J Med 2014;370(14):6934-1168.) Cologuard may produce a false negative or false positive result (no colorectal cancer or precancerous polyp present at colonoscopy follow up). A negative Cologuard test result does not guarantee the absence of CRC or advanced adenoma (pre-cancer). The current Cologuard screening interval is every 3 years. ([employer] [employer] and U.S. Multi-Society Task Force). Cologuard performance data in a 10,000 patient pivotal study using colonoscopy as the reference method can be accessed at the following location: www.The Switchs.com/results. Additional description of the Cologuard test process, warnings and precautions can be found at www.cologuard.com. Stool specimen (specimen) 05/08/2024 2:20 PM EDT 05/10/2024 7:41 AM EDT Anamaria Novak MD LAB MOLECULAR DIAGNOSTICS ORDERA BLES Final Result [facility] (CLIA #:[id number]) [address] [place] [address], [place] [phone] [facility] (CLIA #:[id number]) [address] [place] [address] * Color Fundus Photography - OU - Both Eyes (07/24/2020 12:00 PM EDT) Anatomical Region Laterality Modality Head Fundus Photograp hy 07/24/2020 12:0 0 PM EDT Narrative 07/24/2020 12:00 PM EDT PERFORMED AT [facility] LOCATION:[id number] [facility] Procedure Note CONVERSION, GENERIC - 03/17/2023 PERFORMED AT [facility] LOCATION:[id number] [facility] Anamaria Novak MD OPHTH PHOTOGRAPHY Final Result from Last 3 Months or Most Recently Relevant to Health Maintenance Insurance [employer] Care Teams Ladle Watcher Relationship Specialty Start Date End Date Anamaria Novak MD [address] [facility] [address] [place] [address] PCP - General Family Medicine 05/11/23 Anamaria Novak MD [address] [facility] [address] [place] [address] [address] - [facility] 11/01/23 12/01/73
--- OUTSIDE RECORDS SUMMARY | 2025-05-17 08:40 | XMS_ITS | Encounter Summary ---
Author Organization [facility] Address [address] [place] [address] Care Team Providers Care Esol Instructor Name Role Phone Anamaria Novak MD Primary Care Provider [phone] Anamraia Novak MD Unavailable Encounter Details Date Type Department Care Team (Late st Contact Info) Description 01/06/2024 Orders Only [facility] [address] [facility] [address] [place] [address] Unallocated, [facility] Provider, [address] [place], [place] [id number] Social History Tobacco Use Types Packs/Day Years [...] [address] [facility] [address] [place] [address] Anamaria Novak MD [address] [place] [address] 05/22/2025 3:00 PM EDT Office Visit [facility] [address] [place] [place] [address] Catherine Gil MD [address] [place] [address] documented as of this encounter Procedures Procedure Name Priority Date/Time Associated Diagnosis Comments ELECTROCARDIOGRAM REPORT Routine 024 2:17 PM EST documented in this encounter Results * Electrocardiogram Report (01/06/2024 2:17 PM EST) us [facility] Provider Unallocated MD IN CLINIC/BEDSIDE O RDERABLES Final Result documented in this encounter Visit Diagnoses Not on filedocumented in this encounter Additional Health Concerns Assessment Noted Time PHQ-9 Depression Total Score: 0 05/14/20 23 10:00 AM EDT documented as of this encounter Care Teams Esol Instructor Relationship Specialty Start Date End Date Anamaria Novak MD [address] [place] [address] PCP - General Family Medicine 05/11/23 Anamaira Novak MD [address] [place] [address] PCP - [facility] 11/01/23 12/01/73 documented as of this encounter
--- OUTSIDE RECORDS SUMMARY | 2025-05-17 08:40 | XMS_ITS | Encounter Summary ---
Author Organization [facility] Address [address] [place] [address] Care Team Providers Care Classroom Instructional Aide Name Role Phone Anamaria Novak MD Primary Care Provider [phone] Anamaria Novak MD Unavailable Encounter Details Date Type Department Care Team (Late st Contact Info) Description 01/13/2024 Abstract [facility] [address] [facility] 110 [place] [address] Anamaria Novak MD [address] [facility] 110 [place] [address] Social History Tobacco Use Types [...] Visit [facility] [address] [facility] 110 [place] [address] Anamaria Novak MD [address] [facility] 110 [place] [address] 05/22/2025 3:00 PM EDT Office Visit [facility] [address] [place] [address] Catherine Gil MD [address] [place] [address] documented as of this encounter Visit Diagnoses Not on filedocumented in this encounter Additional Health Concerns Assessment Noted Time PHQ-9 Depression Total Score: 0 05/14/20 23 10:00 AM EDT documented as of this encounter Care Teams Classroom Instructional Aide Relationship Specialty Start Date End Date Anamaria Novak MD [address] [facility] 110 [place] [address] PCP - General Family Medicine 05/11/23 Anamaria Novak MD [address] [facility] 110 [place] [address] PCP - [facility] 11/01/23 12/01/73 documented as of this encounter
--- OUTSIDE RECORDS SUMMARY | 2025-05-17 08:40 | XMS_ITS | Encounter Summary ---
Author Organization [facility] Address [address] [place] [address] Care Team Providers Care Bank And Savings Securities Trader Name Role Phone Anamaria Novak MD Unavailable Anamaria Novak MD Primary Care Provider [phone] Anamaria Novak MD Unavailable Encounter Details Date Type Department Care Team (Late st Contact Info) Description 05/25/2023 Abstract [facility] [address] [facility] 110 [place] [address] Anamaria Novak MD [address] [facility] 110 [place] [address] Social History Tobacco Use Types Packs/Day Years Used Date Smoking Tobacco: Former Cigarettes Q uit: 2003 Smokeless Tobacco: Never Comments:Last smoked 10-15 y ears ago Alcohol Use Standard Drinks/Week Comments Yes 0 (1 standard drink = 0.6 oz pur e alcohol) drinks monthly or less AUDIT-C Answer Date Recorded Q1: How often [...] [address] [facility] [address] [place] [address] Anamaria Novak MD [address] [place] [address] 05/22/2025 3:00 PM EDT Office Visit [facility] [address] [place] [address] Catherine Gil MD [address] [place], [place] [id number] documented as of this encounter Visit Diagnoses Not on filedocumented in this encounter Additional Health Concerns Assessment Noted Time PHQ-9 Depression Total Score: 0 05/14/20 23 10:00 AM EDT documented as of this encounter Care Teams Bank And Savings Securities Trader Relationship Specialty Start Date End Date Anamaria Novak MD [address] [place] [address] PCP - [facility] 11/01/22 08/31/23 Anamaria Novak MD [address] [place] [address] PCP - General Family Medicine 05/11/23 Anamaria Novak MD [address] [place] [address] PCP - [facility] 11/01/23 12/01/73 documented as of this encounter
--- OUTSIDE RECORDS SUMMARY | 2025-05-17 08:40 | XMS_ITS | Encounter Summary ---
Author Organization [facility] Address [address] [place] [address] Care Team Providers Care Ceramic Tile Installation Helper Name Role Phone Anamaria Novak MD Primary Care Provider Anamaria Novak MD Unavailable Encounter Details Date Type Department Care Team (Late st Contact Info) Description 05/17/2025 Telephone [facility] [address] [place] [address] Anamaria Novak MD [address] [facility] 110 [place] [address] Social History Tobacco Use Types [...] on file documented as of this encounter Miscellaneous Notes * Telephone Encounter - Radha Erazo MA - 05/17/2025 8:14 AM EDT Needed lab orders documented in this encounter Plan of Treatment Upcoming Encounters Date Type Department Care Team (Late st Contact Info) Description 05/17/2025 2:30 PM EDT Office Visit [facility] [address] [facility] [place] [address] Anamaria Novak MD [address] [place] [address] 05/22/2025 3:00 PM EDT Office Visit [facility] [address] [place] [id number] Catherine Gil MD [address] [place] [address] Scheduled Orders Name Type Priority Associated Diagnoses Orde r Schedule CBC and differential Lab Routine Benign essential hypertension Nocturia Type 2 diabetes mellitus with hyperglycemia, with long-term current use of insulin (HCC) Hypercholesterolemia Medicare annual wellness visit, subsequent Expected: 05/17/2025 (Approximate), Expires: 05/17/2026 Comprehensive metabolic panel Lab Routine Benign essential hypertension Nocturia Type 2 diabetes mellitus with hyperglycemia, with long-term current use of insulin (HCC) Hypercholesterolemia Medicare annual wellness visit, subsequent Expected: 05/17/2025 (Approximate), Expires: 05/17/2026 Lipid panel Lab Routine Hypercholesterolemia Medicare annual wellness visit, subsequent Expected: 05/17/2025 (Approximate), Expires: 05/17/2026 PSA Lab Routine Nocturia Medicare annual wellness visit, subsequent Expected: 05/17/2025 (Approximate), Expires: 05/17/2026 Microalbumin / creatinine urine ratio Lab Routine Type 2 diabetes mellitus with hyperglycemia, with long-term current use of insulin (HCC) Medicare annual wellness visit, subsequent Expected: 05/17/2025 (Approximate), Expires: 05/17/2026 documented as of this encounter Visit Diagnoses Diagnosis Benign essential hypertension Essential hypertension, benign Nocturia Type 2 diabetes mellitus with hyperglycemia, with long-term current use of insulin (HCC) Hypercholesterolemia Pure hypercholesterolemia Medicare annual wellness visit, subsequent documented in this encounter Additional Health Concerns Assessment Noted Time PHQ-9 Depression Total Score: 0 05/14/20 23 10:00 AM EDT documented as of this encounter Care Teams Ceramic Tile Installation Helper Relationship Specialty Start Date End Date Anamaria Novak MD [address] [address] PCP - General Family Medicine 05/11/23 Anamaria Novak MD [address] [address] PCP - [facility] 11/01/23 12/01/73 documented as of this encounter
--- OUTSIDE RECORDS SUMMARY | 2025-05-17 08:40 | XMS_ITS | Encounter Summary ---
Author Organization [facility] Address [address] [place] [address] Care Team Providers Care City Collector Name Role Phone Anamaria Novak MD Unavailable Anamaria Novak MD Primary Care Provider [phone] Anamaria Novak MD Unavailable Encounter Details Date Type Department Care Team (Late st Contact Info) Description 08/02/2023 Abstract [facility] [address] [facility] 110 [place] [address] Anamaria Novak MD [address] [facility] 110 [place], [place] [id number] Social History Tobacco Use Types Packs/Day Years [...] [address] [facility] [place] [address] Anamaria Novak MD [address] [place] [address] 05/22/2025 3:00 PM EDT Office Visit [facility] [address] [place] [address] Catherine Gil MD [address] [place], [place] [id number] documented as of this encounter Visit Diagnoses Not on filedocumented in this encounter Additional Health Concerns Assessment Noted Time PHQ-9 Depression Total Score: 0 05/14/20 23 10:00 AM EDT documented as of this encounter Care Teams City Collector Relationship Specialty Start Date End Date Anamaria Novak MD [address] [facility] 110 [place] [address] PCP - [facility] 11/01/22 08/31/23 Anamaria Novak MD [address] [place] [address] PCP - General Family Medicine 05/11/23 Anamaria Novak MD [address] [place] [address] PCP - [facility] 11/01/23 12/01/73 documented as of this encounter
[2025-05-17 09:06] LABS: Hematocrit 41.6 % (42.0-54.0); Hemoglobin 13.8 g/dL (14.0-18.0); Immature Granulocytes Abs Auto 0.04 10^3/uL (0.00-0.03); Immature Granulocytes Pct Auto 0.6 % (0.0-0.5); Lymphocytes Absolute Auto 1.3 10^3/uL (1.2-3.8); Mean Corpuscular HGB Conc 33.2 g/dL (29.9-35.2); Mean Corpuscular Hemoglobin 29.5 pg (25.9-34.0); Mean Corpuscular Volume 88.9 fL (80.0-94.0); Platelet Count 208 10^3/uL (150-450); Red Blood Count 4.68 10^6/uL (4.70-6.10); White Blood Count 6.8 10^3/uL (4.0-11.0)
[2025-05-17 09:18] LABS: Microalbum Creatinine Ratio Ur 16.1 mg/g (0.0-29.9)
[2025-05-17 09:26] LABS: Alanine Aminotransferase 40 U/L (16-63); Albumin Globulin Ratio 1.1; Albumin Level 3.7 g/dL (3.4-5.0); Alkaline Phosphatase 65 U/L (46-116); Anion Gap 13.9; Aspartate Amino Transferase 22 U/L (15-37); Blood Urea Nitrogen 20.0 mg/dL (7.0-18.0); Calcium 9.0 mg/dL (8.5-10.1); Carbon Dioxide 27.3 mmol/L (21.0-32.0); Chloride 106 mmol/L (98-107); Cholesterol 121 mg/dL (<=200); Estimated GFR (African America >60 (>=60 mL/min/1.73m^2); Estimated GFR (Non-African Ame >60 (>=60 mL/min/1.73m^2); Globulin 3.4 g/dL; Glucose 126 mg/dL (74-106); HDL Cholesterol 42 mg/dL (40-60); Potassium 4.2 mmol/L (3.5-5.1); Sodium 143 mmol/L (136-145); Total Protein 7.1 g/dL (6.4-8.2); Triglycerides 193 mg/dL (<=150); VLDL CHOLESTEROL 38.6 mg/dL
== END 2025-05-17 08:37 | disposition home or self-care (01) ==
LOC: LAB 08:38
PROVIDERS: PCP Family Medicine; Visit Provider Family Medicine
DX: Z00.00 Encounter for general adult medical examination without abnormal findings (principal); I10 Essential (primary) hypertension; R35.1 Nocturia; E11.65 Type 2 diabetes mellitus with hyperglycemia; Z79.4 Long term (current) use of insulin; E78.00 Pure hypercholesterolemia, unspecified
CPT/HCPCS: 36415; 80053; 80061; 82043; 82570; 85025; G0103